=== PATIENT | male | born 1970 | race Caucasian/White ===

== ENCOUNTER 2023-10-26 07:07 | Day surgery (SDC) | payer OTHER ==
[2023-10-20 14:31] VITALS: BMI 29.0
[2023-10-26] MEDS: LACTATED RINGERS 1,000 ML IV SCH (08:00)
[2023-10-26] MEDS: LIDOCAINE 1% (10MG/ML) FOR IV START INTRADERMA PRN (08:00)
[2023-10-26] MEDS ORDERED: PROPOFOL 10 MG/ML 20 ML VIAL IV ONE (08:18)
--- NOTE | 2023-10-26 08:36 | P.PCN ---
Date of Procedure: 10/26/23 Procedure(s) Performed: Brief history: Patient is a pleasant 53-year-old white male scheduled for an elective upper endoscopy as well as colonoscopy as a part of evaluation of GERD/screening for colon cancer. His son was diagnosed with colon cancer at age 34. Procedure performed: Esophagogastroduodenoscopy with biopsy Colonoscopy with biopsy Preoperative diagnosis: GERD Screening for colon cancer and family history of colon cancer Anesthesia: MAC Procedure: After informed consent was obtained from the patient was brought into the endoscopy unit and IV sedation was administered by anesthesia under continuous monitoring. Initially upper endoscopy was done. The Olympus GF 160 video endoscope was inserted inserted into the mouth and esophagus intubated without any difficulty and was gradually advanced into the stomach and duodenum and carefully examined. The bulb and second part of the duodenum appeared normal. The scope was then withdrawn into the stomach adequately insufflated with air and upon careful examination the antrum had mild gastritis and biopsies were done from this area. Mucosa of the body, cardia and fundus appeared normal. The scope was then withdrawn into the esophagus. Small sliding-type hiatal hernia noted. The GE junction was located at 40 cm to the incisors. It appeared regular with no erythema erosions or ulcerations. Rest of the esophagus appeared normal. Patient tolerated the procedure well. At this time the patient continued to remain sedation. Initial digital rectal examination was normal. Olympus CF 160 video colonoscope was then inserted into the rectum and gradually advanced to the cecum without any difficulty. Careful examination was performed as the scope was gradually being withdrawn. The prep was excellent. The cecum, ascending colon, transverse colon, appeared normal. The descending colon there was a 5 mm sessile polyp that was removed by cold biopsy. Rest of the descending colon, sigmoid colon and rectum appeared normal. Retroflexion was performed in the rectum and no lesions were noted. Patient tolerated the procedure well. Impression: 1. Upper endoscopy revealed small hiatal hernia and mild antral gastritis but no evidence of esophagitis or Jackson's esophagus 2. Colonoscopy revealed 5 mm descending colon polyp s/p cold biopsy. Rest of the colon appeared normal Recommendations: Findings of this examination were discussed with the patient as well as his family. He was advised to follow-up with the biopsy results. Continue with diet modification and antireflux measures. Recommended repeat screening colonoscopy in 5 years because of the family history of colon cancer
[2023-10-26 08:46] VITALS: TEMP 97.1
[2023-10-26 09:43] VITALS: BP 118/80; PULSE 70; RESP 20
== END 2023-10-26 09:10 | disposition home or self-care (01) ==
LOC: ORWHC2ENDO 07:07
PROVIDERS: ATTEND Internal Medicine Gastroenterology
DX: Z12.11 Encounter for screening for malignant neoplasm of colon (principal); D12.4 Benign neoplasm of descending colon; K21.9 Gastro-esophageal reflux disease without esophagitis; K31.9 Disease of stomach and duodenum, unspecified; K44.9 Diaphragmatic hernia without obstruction or gangrene; Z80.0 Family history of malignant neoplasm of digestive organs; Z88.0 Allergy status to penicillin; Z79.899 Other long term (current) drug therapy; Z86.73 Personal history of transient ischemic attack (TIA), and cerebral infarction without residual deficits
CPT/HCPCS: 88305; 45380; 43239; J2704

== ENCOUNTER → 2024-12-25 | Outpatient (CLI) | payer OTHER ==
--- NOTE | 2024-12-25 16:17 | CT ---
EXAMINATION TYPE: CT brain wo con CT DLP: 1078 mGycm, Automated exposure control for dose reduction was used. DATE OF EXAM: 12/25/2024 4:07 PM COMPARISON: None. CLINICAL INDICATION:Male, 54 years old with history of H83.9 VISUAL DISTURBANCE, visual disturbance TECHNIQUE: Brain: Multiple axial CT images of the brain were obtained without IV contrast. . Coronal and sagitta l reformats reviewed. FINDINGS: Brain: Extra-axial spaces: No abnormal extra-axial fluid collections. Ventricular system: Within normal limits Cerebral parenchyma: No acute intraparenchymal hemorrhage or mass effect. The portillo-white junction is well differentiated. Cerebellum: Unremarkable. Mass effect: No evidence of midline shift. Intracranial vasculature: unremarkable Soft tissues: Normal. Calvarium/osseous structures: No depressed skull fracture. Paranasal sinuses and mastoid air cells: Clear Visualized orbits: Orbital contents are intact. IMPRESSION: No acute intracranial process. [facility], , 12/25/2024 4:14 PM
--- NOTE | 2024-12-25 16:37 | CT ---
EXAMINATION TYPE: CT angio head neck CT DLP: 365.1 mGycm, Automated exposure control for dose reduction was used. DATE OF EXAM: 12/25/2024 4:27 PM COMPARISON: CT brain of the same date. CLINICAL INDICATION:Male, 54 years old with history of H83.9 VISUAL DISTURBANCE; PHH, visual disturba nce TECHNIQUE: Axially acquired helical CT angiogram of the head and neck was obtained with contrast util izing 75 cc of Isovue-370 administered intravenously. Axial images are supplemented with 3D reconstru ctions which were post-processed at an independent workstation. NASCET criteria used. MIP imaging performed on a separate workstation and submitted for review. FINDINGS: CTA HEAD: No evidence of acute intracranial hemorrhage, mass effect, or midline shift. The ventricles, sulci, a nd cisterns are unremarkable. The visualized portions of the internal carotid arteries, middle cerebral arteries, anterior cerebral arteries, and posterior cerebral arteries are patent. origin of the left [employer]. The basilar and vertebral arteries are patent. CTA NECK: Right Carotid System: The common carotid artery and external carotid artery are patent. The carotid bifurcation demonstrate s no evidence of hemodynamically significant stenosis. The remaining portions of the internal carotid artery demonstrate normal size without significant narrowing. Left Carotid System: The common carotid artery and external carotid artery are patent. The carotid bifurcation demonstrate s no evidence of hemodynamically significant stenosis. The remaining portions of the internal carotid artery demonstrate normal size without significant narrowing. Vertebral arteries are patent without evidence hemodynamically significant stenosis. Dominant right v ertebral artery. There is a three-vessel aortic arch. The origins of the great vessels are patent. No evidence of hemo dynamically significant stenosis. Mild emphysematous changes. Couple of bilateral upper lobe calcified granulomas. Right upper lobe per ipheral 3.4 mm pulmonary nodule. Mildly prominent/enlarged mediastinal lymph nodes with some demonstr ating central calcification. Largest in the right peritracheal region measures up to 1.2 cm short axi s. Mild multilevel degenerative disc disease of the cervical spine. Right-sided palatine tonsillolith . IMPRESSION: 1. No evidence of dissection of the cervical internal carotid arteries or vertebral arteries or any e vidence of significant stenosis at the carotid bifurcations. 2. No evidence of high-grade stenosis or intracranial aneurysm. 3. Couple of bilateral upper lobe calcified granulomas with additional right upper lobe 3.4 mm pulmon olaf nodule. According to Fleischner's criteria in a low risk patient no follow up is recommended. In a high-risk patient consider optional CT chest in 12 months. 4. Mildly prominent/enlarged nonspecific mediastinal lymph nodes with some demonstrating central calc ification. Correlate for granulomatous disease versus sarcoidosis versus other etiologies. [facility], , 12/25/2024 4:35 PM
[2024-12-25 18:01] LABS: Basophils # (A) 0.04 10*3/uL (0.00-0.10); Basophils % (A) 0.6 %; Eosinophils # (A) 0.19 10*3/uL (0.04-0.35); Eosinophils % (A) 2.8 %; HCT 46.2 % (39.6-50.0); HGB 15.6 g/dL (13.0-17.0); Lymphocytes # (A) 1.67 10*3/uL (0.90-5.00); Lymphocytes % (A) 25.0 %; MCH 30.5 pg (27.0-32.0); MCHC 33.8 g/dL (32.0-37.0); MCV 90.2 fL (80.0-97.0); Monocytes # (A) 0.50 10*3/uL (0.20-1.00); Monocytes % (A) 7.5 %; Neutrophils # (A) 4.24 10*3/uL (1.80-7.70); Neutrophils % (A) 63.7 %; Platelet Count 305 10*3/uL (140-440); RBC 5.12 10*6/uL (4.40-5.60); RDW 12.6 % (11.5-14.5); WBC 6.67 10*3/uL (4.50-10.00)
[2024-12-25 18:06] LABS: ALT 24 U/L (4-49); AST 29 U/L (17-59); African American GFR (CKD) >90 (>60 ml/min/1.73 sqM); Albumin 4.5 g/dL (3.5-5.0); Albumin/Globulin Ratio 1.7; Alkaline Phosphatase 52 U/L (38-126); Anion Gap 11 mmol/L; Blood Urea Nitrogen 23 mg/dL (9-20); Calcium 10.0 mg/dL (8.4-10.2); Carbon Dioxide 28 mmol/L (22-30); Chloride 103 mmol/L (98-107); Globulin 2.6 g/dL; Glucose 97 mg/dL (74-99); Non-African American GFR(CKD) >90 (>60 ml/min/1.73 sqM); Potassium 5.3 mmol/L (3.5-5.1); Sodium 142 mmol/L (137-145); Total Protein 7.1 g/dL (6.3-8.2)
== END | disposition home or self-care (01) ==
LOC: RADCTMAIN 14:16
PROVIDERS: ATTEND Family Medicine
DX: H53.9 Unspecified visual disturbance (principal); R91.1 Solitary pulmonary nodule; R59.0 Localized enlarged lymph nodes; J84.10 Pulmonary fibrosis, unspecified
CPT/HCPCS: 80053; 85025; 70496; 70450; 70498; 36415; Q9967